=== PATIENT | male | born 1955 | race Caucasian/White ===

== ENCOUNTER → 2016-08-12 | Outpatient (CLI) | payer OTHER, MEDICAID ==
[2016-08-12 12:26] LABS: BILIRUBIN,URINE NEGATIVE (NEGATIVE); BLOOD/HEMOGLOBIN,URINE 2+ (NEGATIVE); GLUCOSE, URINE NEGATIVE (NEGATIVE); KETONES,URINE NEGATIVE (NEGATIVE); LEUKOCYTE ESTERASE ,URINE 1+ (NEGATIVE); NITRITES,URINE NEGATIVE (NEGATIVE); PROTEIN,URINE 1+ (NEGATIVE); UROBILINOGEN,URINE NORMAL (NORMAL)
[2016-08-12 12:28] LABS: BASOPHILS % (AUTO) 0.7 % (0.2-1.0); EOSINOPHILS # (AUTO) 0.3 x10^3/uL (0.0-0.2); HEMATOCRIT 41.6 % (42.0-54.0); HEMOGLOBIN 14.2 g/dL (13.5-18.0); LYMPHOCYTES # (AUTO) 2.2 X10^3/uL (1.3-2.9); LYMPHOCYTES % (AUTO) 33.6 % (21.0-51.0); MEAN CORPUSCULAR HEMOGLOBIN 32.5 pg (27.0-34.0); MEAN CORPUSCULAR VOLUME 95.5 fL (80.0-100.0); MEAN PLATELET VOLUME 7.1 fL (7.4-11.0); MONOCYTES # (AUTO) 0.4 x10^3/uL (0.3-0.8); MONOCYTES % (AUTO) 6.7 % (0.0-13.0); NEUTROPHILS # (AUTO) 3.6 x10^3/uL (2.2-4.8); PLATELET COUNT 190 X10^3/uL (150.0-450.0); RED BLOOD COUNT 4.36 X10^6/uL (4.7-6.0); WHITE BLOOD COUNT 6.6 X10^3/uL (3.6-10.0)
[2016-08-12 12:35] LABS: APPEARANCE,URINE CLEAR (CLEAR); BACTERIA,URINE TRACE /HPF (NEGATIVE); COLOR,URINE YELLOW (YELLOW); SQUAMOUS EPITHELIAL CELL,UR FEW /HPF (NEGATIVE)
[2016-08-12 12:39] LABS: ALANINE AMINOTRANSFERASE 30 Units/L (12-78); ALBUMIN 3.6 g/dL (3.4-5.0); ALKALINE PHOSPHATASE 79 Units/L (46-116); ASPARTATE AMINO TRANSFERASE 27 Units/L (15-37); BLOOD UREA NITROGEN 13 mg/dL (7-18); CALCIUM 8.4 mg/dL (8.5-10.1); CARBON DIOXIDE 28.5 mmol/L (21-32); CHLORIDE 106 mmol/L (98-107); CREATININE 1.21 mg/dL (0.70-1.30); GLUCOSE 87 mg/dL (65-99); SODIUM 142 mmol/L (136-145); TOTAL PROTEIN 7.6 g/dL (6.4-8.2); eGFR BLACK RACES > 60 (>60); eGFR NON BLACK RACES > 60 (>60)
--- NOTE | 2016-08-12 13:01 | RAD ---
Examination: Chest x-ray. Clinical History: Preop knee replacement. Technique: PA and lateral views of the chest were obtained. Comparison: None available. Findings: The cardiac and mediastinal contours are within normal limits. No pneumothorax or pleural effusion is noted. A small epicardial fat pad is present at the left cardiophrenic angle. There is a 6 mm nodular opacity present at the right lung base. Comparison with a prior chest x-ray, preferably older than 2 years, is recommended. If no prior chest x-ray is available for comparison, a CT of the chest, without intravenous contrast, is recommended for proper characterization of this lesion. Degenerative changes are noted in the spine. No acute osseous abnormality is noted. Impression: 1. There is a 6 mm nodular opacity present at the right lung base. Comparison with a prior chest x-r ay, preferably older than 2 years, is recommended. If no prior chest x-ray is available for comparis on, a CT of the chest, without intravenous contrast, is recommended for proper characterization of t his lesion. Reported By:
== END ==
LOC: LAB 11:25
PROVIDERS: ATTEND Specialist
DX: Z01.818 Encounter for other preprocedural examination (principal); Z01.810 Encounter for preprocedural cardiovascular examination; Z01.811 Encounter for preprocedural respiratory examination; Z79.899 Other long term (current) drug therapy; Z79.01 Long term (current) use of anticoagulants; Z11.8 Encounter for screening for other infectious and parasitic diseases; B95.7 Other staphylococcus as the cause of diseases classified elsewhere; M17.11 Unilateral primary osteoarthritis, right knee
CPT/HCPCS: 36415; 71020; 80053; 81001; 85025; 85610; 85730; 86850; 86900; 86901; 87641; 93005; 93010